=== PATIENT | female | born 1965 | race Caucasian/White ===

== ENCOUNTER 2020-08-31 16:48 | Outpatient (CLI) | payer OTHER, SELFPAY ==
--- NOTE | ~2020-08-31 | MM_ITS ---
EXAMINATION: MM screening luisana BI w ciarra HISTORY: Screening mammogram TECHNIQUE: Craniocaudal and mediolateral oblique 3-D tomosynthesis images were obtained and synthetic 2-D images were generated. CAD analysis was submitted and interpreted. COMPARISON: 08/06/2019, 08/01/2018, 07/24/2017 bilateral digital screening mammogram examinations BREAST PARENCHYMAL COMPOSITION: There are scattered areas of fibroglandular density. FINDINGS: There is no evidence of suspicious mass, calcification, or architectural distortion to sugg est malignancy in either breast. There has been no suspicious interval change. IMPRESSION: 1. No mammographic evidence of malignancy. 2. Recommend routine screening mammography in one year. BI-RADS Category 1: Negative Reviewed, dictated and finalized at location A.
== END 2020-08-31 16:49 | disposition home or self-care (01) ==
LOC: ANHIMG 16:53
DX: Z12.31 Encounter for screening mammogram for malignant neoplasm of breast (principal)
CPT/HCPCS: 77063; 77067

== ENCOUNTER 2021-09-20 16:12 | Outpatient (CLI) | payer OTHER, SELFPAY ==
--- NOTE | ~2021-09-20 | MM_ITS ---
EXAMINATION: MM screening luisana BI w ciarra HISTORY: Screening mammogram TECHNIQUE: Craniocaudal and mediolateral oblique 3-D tomosynthesis images were obtained and synthetic 2-D images were generated. CAD analysis was submitted and interpreted. COMPARISON: 08/31/2020, 08/06/2019, 08/01/2018 bilateral screening mammogram examinations BREAST PARENCHYMAL COMPOSITION: There are scattered areas of fibroglandular density. FINDINGS: There is no evidence of suspicious mass, calcification, or architectural distortion to sugg est malignancy in either breast. There has been no suspicious interval change. IMPRESSION: 1. No mammographic evidence of malignancy. 2. Recommend routine screening mammography in one year. BI-RADS Category 1: Negative Reviewed, dictated and finalized at location A. PROGRAMMER
== END 2021-09-20 16:13 | disposition home or self-care (01) ==
LOC: ANHIMG 16:13
DX: Z12.31 Encounter for screening mammogram for malignant neoplasm of breast (principal)
CPT/HCPCS: 77063; 77067

== ENCOUNTER 2021-11-15 16:37 | Outpatient (CLI) | payer OTHER, SELFPAY ==
--- NOTE | ~2021-11-15 | DEXA_ITS ---
Bone Density Report Name: JAKE HARPER Age: 56 Sex: Female Ethnicity: White Date of : 1965 Indication: postmenopausal; Referring Provider: UNKNOWN, UNKNOWN Study: Bone densitometry was performed. Exam Date: November 15, 2021 Accession number: [id number] Bone Density: Region BMD T-score Z-score Classification AP Spine (L1-L4) 1.160 1.0 2.4 Normal Femoral Neck (Left) 0.950 0.9 2.1 Normal Total Hip (Left) 1.073 1.1 2.0 Normal Total Hip Bilateral Avg 1.089 1.2 2.1 Normal Femoral Neck (Right) 0.807 -0.4 0.8 Normal Total Hip (Right) 1.103 1.3 2.2 Normal World Health Organization criteria for BMD impression classify patients as: Normal (T-score at or above -1.0), Osteopenia (T-score between -1.0 and -2.5), or Osteoporosis (T-score at or below -2.5). 10-year Fracture Risk: FRAX not reported because: All T-scores for Spine Total, Hip Total, Femoral Neck at or above -1.0 Clinical Information Provided by Patient: Patient maximum height was 67 Menopause Age: 48 No regular weight bearing exercise Drinks caffeinated beverages Onset of menses at age 10 Number of children 3 Impression: The patient has normal bone mass. Discussion: BONE DENSITY IS ABOVE THE MINIMUM DESIRABLE LEVEL AT ALL SKELETAL SITES TESTED. This patient?s bone mineral density is above the minimum desirable level (T-score -1.0 or better) at all sites measured. The patient should follow a healthful lifestyle (good nutrition with adequate calcium and vitamin D, and appropriate weight-bearing exercise). Follow-Up: Consider repeating this study in 5 years or sooner if there is some new clinical indication. Reported by: [facility] on 11/15/2021 4:55:00 PM. Reviewed, dictated and finalized at location AErick MORRISON
== END 2021-11-15 16:38 | disposition home or self-care (01) ==
LOC: ANHIMG 16:38
DX: Z78.0 Asymptomatic menopausal state (principal)
CPT/HCPCS: 77080

== ENCOUNTER 2022-11-11 09:57 | Outpatient (CLI) | payer OTHER, SELFPAY ==
--- NOTE | ~2022-11-11 | MM_ITS ---
EXAMINATION: MM screening luisana BI w ciarra HISTORY: Screening mammogram TECHNIQUE: Craniocaudal and mediolateral oblique 3-D tomosynthesis images were obtained and synthetic 2-D images were generated. CAD analysis was submitted and interpreted. COMPARISON: 09/20/2021, 08/31/2020, 08/06/2019 bilateral screening mammogram examinations BREAST PARENCHYMAL COMPOSITION: There are scattered areas of fibroglandular density. FINDINGS: There is no evidence of suspicious mass, calcification, or architectural distortion to sugg est malignancy in either breast. There has been no suspicious interval change. IMPRESSION: 1. No mammographic evidence of malignancy. 2. Recommend routine screening mammography in one year. BI-RADS Category 1: Negative Reviewed, dictated and finalized at location A. SH HISTORY PROFESSOR
== END 2022-11-11 09:58 | disposition home or self-care (01) ==
PROVIDERS: Visit Provider Obstetrics & Gynecology
DX: Z12.31 Encounter for screening mammogram for malignant neoplasm of breast (principal)
CPT/HCPCS: 77063; 77067

== ENCOUNTER 2023-12-18 13:18 | Outpatient (CLI) | payer OTHER, SELFPAY ==
--- NOTE | ~2023-12-18 | MM_ITS ---
EXAMINATION: MM screening luisana BI w ciarra HISTORY: Screening mammogram TECHNIQUE: Craniocaudal and mediolateral oblique 3-D tomosynthesis images were obtained and synthetic 2-D images were generated. CAD analysis was submitted and interpreted. COMPARISON: 11/11/2022, 09/30/2021, 08/31/2020 and lateral screening mammogram examinations BREAST PARENCHYMAL COMPOSITION: There are scattered areas of fibroglandular density. FINDINGS: There is no evidence of suspicious mass, calcification, or architectural distortion to sugg est malignancy in either breast. There has been no suspicious interval change. IMPRESSION: 1. No mammographic evidence of malignancy. 2. Recommend routine screening mammography in one year. BI-RADS Category 1: Negative Reviewed, dictated and finalized at location A. ONAL ACCOUNT MANAGER
== END 2023-12-18 13:19 | disposition home or self-care (01) ==
PROVIDERS: Visit Provider Obstetrics & Gynecology
DX: Z12.31 Encounter for screening mammogram for malignant neoplasm of breast (principal)
CPT/HCPCS: 77063; 77067

== ENCOUNTER 2024-12-23 14:19 | Outpatient (CLI) | payer OTHER, SELFPAY ==
--- NOTE | ~2024-12-23 | MM_ITS ---
EXAMINATION: MM screening luisana BI w ciarra HISTORY: Screening TECHNIQUE: Craniocaudal and mediolateral oblique 3-D tomosynthesis images were obtained and synthetic 2-D images were generated. CAD analysis was submitted and interpreted. COMPARISON: Comparison to multiple prior studies sequentially, with oldest reviewed study dated 08/01. BREAST PARENCHYMAL COMPOSITION: Not Dense: The breasts are almost entirely fatty. FINDINGS: There is no evidence of suspicious mass, calcification, or architectural distortion to sugg est malignancy in either breast. There has been no suspicious interval change. IMPRESSION: 1. No mammographic evidence of malignancy. 2. Recommend routine screening mammography in one year. BI-RADS Category 1: Negative Reviewed, dictated and finalized at location B. TIME STAFF INTERPRETER
--- OUTSIDE RECORDS SUMMARY | 2024-12-23 15:08 | XMS_ITS | Clinical Summary ---
Author Organization [facility] Address [address] [place] [address] Phone Care Team Providers Care Rig Superintendent Name Role Phone Provider, None Primary Care Provider Unavailabl e Social History Tobacco Use Types Packs/Day Years Used Date Smoking Tobacco: Never Assessed Comments No Sex and Gender Information Value Date Recorded Sex Assigned at Not on file Legal Sex Female 12:42 AM CDT Gender Identity Not on file Sexual Orientation Not on file Plan of Treatment Health Maintenance Due Date Last Done Comments Hepatitis C Virus (HCV) Screening 1965 TdaP Immunization 1965 Pap Smear 01/28/1984 Cervical Cancer Screening (CCS) 1993 HPV/Cotest 1993 Colonoscopy 01/28/2008 Colorectal Cancer Screening 01/28/2008 Cologuard 2013 Immunochemical Fecal Occult Blood 2013 Pneumococcal Immunization (5 0+ years) (1 of 1 - PCV) 2013 Zoster Immunization (1 of 2) 2013 Mammogram 07/08/2018 07/08/2016 Influenza Immunization (#1) 2024 SARS-COV-2 Immunization ( - 2023-25 season) 2024 Respiratory Syncytial Virus (RSV) Immunization (Adult) (1 - 1-dose 75+ series) 2038 Hepatitis B Immunization Aged Out No longer eligible based on patient's age to complete this topic Meningococcal Immunization (ACWY) Aged Out No longer eligible based on patient's age to complete this topic Pneumococcal Immunization Combined Aged Out No longer eligible based on patient's age to complete this topic Rotavirus Immunization Aged Out No lo nger eligible based on patient's age to complete this topic Procedures Procedure Name Priority Date/Time Associated Diagnosis Comments [facility] SCREENING BILATERAL DIGITAL W CAD Routine 07/08/2016 9:51 AM CDT Encounter for screening mammogram for malignant neoplasm of breast from Last 3 Months or Most Recently Relevant to Health Maintenance Results * ANGELA SCREENING BILATERAL DIGITAL W CAD (07/08/2016 9:51 AM CDT) Anatomical Region Laterality Modality breast Bilateral Mammography 07/08/2016 9:39 AM CDT Narrative 07/11/2016 7:24 AM CDT - ANGELA SCREENING BILATERAL DIGITAL W CAD BILATERAL DIGITAL SCREENING MAMMOGRAM WITH CAD WITH MEDIOLATERAL OBLIQUE CRANIOCAUDAL: 07/08/2016 The study was acquired using digital technology and interpreted from soft copy. Current study was also evaluated with ICAD version 7.2. CLINICAL: Routine screening. Patient has no complaints. No personal history of cancer. No family history of breast cancer. COMPARISONS: Comparison is made to exams dated: 06/14/2015, 06/09/2014, 05/21/2013, and 04/29/2012 [facility]. BREAST TISSUE:There are scattered fibroglandular densities in both breasts. FINDINGS: There are mole markers on the left breast. No significant masses, calcifications, or other findings are seen in either breast. There has been no significant interval change. IMPRESSION: BI-RAD 1 NEGATIVE There is no mammographic evidence of malignancy. A 1 year screening mammogram is recommended. The patient has been or will be contacted. The patient will be entered into a reminder system with a target due date of 1 year for her next screening exam. Electronically signed by: Tessie pickering/manoj:07/10/2016 11:13:15 Set Staff Fitter: Dorcas Winters(Lars), [facility] letter sent: Normal Exam Reading location: [facility] BI-RADS: 1 Negative Procedure Note Tessie Ellison MD - 07/11/2016 - [facility] SCREENING BILATERAL DIGITAL W CAD BILATERAL DIGITAL SCREENING MAMMOGRAM WITH CAD WITH MEDIOLATERAL OBLIQUE CRANIOCAUDAL: 07/08/2016 The study was acquired using digital technology and interpreted from soft copy. Current study was also evaluated with ICAD version 7.2. CLINICAL: Routine screening. Patient has no complaints. No personal history of cancer. No family history of breast cancer. COMPARISONS: Comparison is made to exams dated: 06/14/2015, 06/09/2014, 05/21/2013, and 04/29/2012 [facility]. BREAST TISSUE:There are scattered fibroglandular densities in both breasts. FINDINGS: There are mole markers on the left breast. No significant masses, calcifications, or other findings are seen in either breast. There has been no significant interval change. IMPRESSION: BI-RAD 1 NEGATIVE There is no mammographic evidence of malignancy. A 1 year screening mammogram is recommended. The patient has been or will be contacted. The patient will be entered into a reminder system with a target due date of 1 year for her next screening exam. Electronically signed by: Tessie Ellison M.D. pw/manoj:07/10/2016 11:13:15 Set Staff Fitter: Drocas Winters(Lars), [facility] letter sent: Normal Exam Reading location: [facility] BI-RADS: 1 Negative Krish Newby MD IMG MAMMO ORDERABLES Final Res ult from Last 3 Months or Most Recently Relevant to Health Maintenance Care Teams Rig Superintendent Relationship Specialty Start Date End Date Provider, None [place] PCP - General 04/27/21
--- OUTSIDE RECORDS SUMMARY | 2024-12-23 15:08 | XMS_ITS | Referral Summary ---
Author Organization [facility] Virtual Care Address [address] [place] [id number] Phone Care Team Providers Care Trimmer Loader Name Role Phone Suzy Fortune NP Primary Care Provider [phone] Encounters Date Type Department Care Team Description 12/22/2024 Telephone [facility] Medical Group Primary Care at [address] [address] Rosana Crabtree from Last 3 Months Allergies No known active allergies Medications levothyroxine (SYNTHROID) 100 mcg tablet Take 1 tablet (100 mcg total) by mouth daily 90 tablet 4 4 Active lovastatin (MEVACOR) 10 mg tablet TAKE 1 TABLET BY MOUTH EVERY DAY AT NIGHT 90 tablet 3 5 Active lisinopril-hyd roCHLOROthiazi de (ZESTORETIC) 10-12.5 mg per tablet TAKE 1 TABLET BY MOUTH EVERY DAY 90 tablet 3 5 Active lisinopril-hyd roCHLOROthiazi de (ZESTORETIC) 10-12.5 mg per tablet Take 1 tablet by mouth daily 90 tablet 3 4 12/05/19 25 Discontinued lovastatin (MEVACOR) 10 mg tablet Take 1 tablet (10 mg total) by mouth nightly 90 tablet 3 4 12/05/19 25 Discontinued Active Problems Problem Noted Date Diagnosed Date Encounter for annual physical exam 06/26/2024 Assessment & Plan (06/26/2024 10:41 AM CDT): Discussed routine health care and maintenance. Get annual flu shot this fall. Labs ordered. Patient continues to refuse to get a colonoscopy or Cologuard. She has an appointment scheduled for next December for her mammogram and would like an order for it today. Encounter for other screenin g for malignant neoplasm of breast 06/26/2024 Assessment & Plan (06/26/2024 10:41 AM CDT): Mammogram ordered Need for hepatitis B screening test 06/26/2024 Hypertension, essential 12/27/2023 Assessment & Plan (06/26/2024 10:39 AM CDT): BP stable at 136/86. Patient reports white coat hypertension. It typically is not over 130/80 at home. Continue to limit salt in diet and take lisinopril HCT 10/12.5 mg daily. Labs ordered Assessment & Plan (12/27/2023 10:57 AM KRAFT DIGESTER OPERATOR): Has a history of white coat syndrome BP checks outside of office always under 140/90 per patient BP in office today is 148/88 Continue lisinopril HCT 10/12.5 mg daily Continue to limit salt in diet Encouraged to increase exercise Mixed hyperlipidemia 12/27/2023 Assessment & Plan (06/26/2024 10:39 AM CDT): Continue to limit fats in diet and take lovastatin 10 mg at HS. Lipid panel ordered Assessment & Plan (12/27/2023 10:57 AM KRAFT DIGESTER OPERATOR): Continue on lovastatin 10 mg at HS and to limit fats in diet Labs ordered today Acquired hypothyroidism 12/27/2023 Assessment & Plan (06/26/2024 10:39 AM CDT): Continue levothyroxine 75 mcg daily. TSH ordered Assessment & Plan (12/27/2023 10:56 AM KRAFT DIGESTER OPERATOR): Continue levothyroxine 50 mcg daily Refills sent to pharmacy Labs ordered today Screening for colon cancer 12/27/2023 Assessment & Plan (12/27/2023 10:59 AM KRAFT DIGESTER OPERATOR): Refuses to get a colonoscopy. Is willing to do a Cologuard screen, ordered today Colonoscopy refused 12/27/2023 Assessment & Plan (12/27/2023 10:59 AM KRAFT DIGESTER OPERATOR): Is agreeable to do Cologuard screen Class 2 obesity without seri ous comorbidity with body mass index (BMI) of 36.0 to 36.9 in adult 12/27/2023 Assessment & Plan (06/26/2024 10:41 AM CDT): BMI 36.17. She was counseled on the importance of obtaining a healthy weight and the risks of obesity. Weight loss recommended. Assessment & Plan (12/27/2023 11:01 AM KRAFT DIGESTER OPERATOR): BMI 35.69 She was counseled on the importance of maintaining a healthy weight and the risks of obesity. Weight loss recommended. Resolved Problems Problem Noted Date Diagnosed Date Resolved Date Severe obesity 06/26/2024 06/26/2024 Need for hepatitis C screening test 12/27/2023 06/26/2024 Immunizations Name Administration Dates Next Due Influenza, Quadrivalent, Spl it, Preservative Free, Intramuscular 08/31/2023,08/25/2022 Influenza, Trivalent, IM (MDV) 08/26/2021 Influenza, Unspecified 08/20/2023(Deferred: Kerri ent Refused) Social History Tobacco Use Types Packs/Day Years Used Date Smoking Tobacco: Never Smokeless Tobacco: Never Tobacco Cessation:Counseling Given: Not Answered AUDIT-C Answer Date Recorded Q1: How often do you have a drink containing alcohol? Never 12/27/2023 Q2: How many drinks containi ng alcohol do you have on a typical day when you are drinking? Patient does not drink Q3: How often do you have si x or more drinks on one occasion? Never 12/27/2023 PHQ-2 Answer Date Recorded PHQ-2 Total Score (If total score is 3 or more points, staff should administer the PHQ-9) 0 12/27/2023 Personal Safety Answer Date Recorded Getting School Help Needed Not on file 01/16 /2024 Comments Unknown Sex and Gender Information Value Date Recorded Sex Assigned at Not on file Legal Sex Female 8:08 AM KRAFT DIGESTER OPERATOR Gender Identity Not on file Sexual Orientation Not on file Last Filed Vital Signs Vital Sign Reading Time Taken Comments Blood Pressure 136/86 06/26/2024 7:56 AM CDT Pulse 75 06/26/2024 7:56 AM CDT Temperature 36.9 C (98.4 F) 06/26/2024 7:56 AM CDT Respiratory Rate - - Oxygen Saturation 96% 06/26/2024 7:56 AM CDT Inhaled Oxygen Concentration - - Weight 104.8 kg (231 lb) 06/26/2024 7:56 AM CDT Height 170.2 cm (5' 7.01 ) 06/26/2024 7:56 AM CD T Body Mass Index 36.17 06/26/2024 7:56 AM CDT Plan of Treatment Not on file Procedures Procedure Name Priority Date/Time Associated Diagnosis Comments HEPATITIS C ANTIBODY Routine 12/27/2023 8:48 AM KRAFT DIGESTER OPERATOR Need for hepatitis C screening test SCREENING MAMMOGRAM 2D BILATERAL Schedule Routine, Read Routine (OP Routine) 12/18/2023 9:08 AM KRAFT DIGESTER OPERATOR from Last 3 Months or Most Recently Relevant to Health Maintenance Results * Hepatitis C antibody Blood (12/27/2023 8:48 AM KRAFT DIGESTER OPERATOR) Hep C Ab Nonreactive Nonreactive LYNN REINOSO Comment: Interpretive Data Nonreactive: Antibodies to HCV not detected. Does NOT exclude the possibility of recent exposure to HCV. Equivocal: Equivocal for HCV antibodies. Supplemental molecular testing will be automatically performed to determine infection status in accordance with current CDC screening recommendations. Reactive: Positive for HCV antibodies. This may represent current or past HCV infection. Supplemental molecular testing will be automatically performed to determine current infection status in accordance with current CDC screening recommendations. Interpretive data was last revised on 2020. Blood 12/27/2023 8:48 AM KRAFT DIGESTER OPERATOR 12/27/2023 2:28 PM KRAFT DIGESTER OPERATOR us Suzy Fortune NP LAB MICROBIOLOGY - GENERAL OR DERABLES Final Result LYNN REINOSO [id number] Department [place] [address] * Screening Mammogram 2D Bilateral (12/18/2023 9:08 AM KRAFT DIGESTER OPERATOR) Anatomical Region Laterality Modality Breast Bilateral Mammography us Historical Provider MD ONEIL MAMMO PROCEDURES Francine l Result from Last 3 Months or Most Recently Relevant to Health Maintenance Insurance A[employer] OPEN ACCESS Care Teams Trimmer Loader Relationship Specialty Start Date End Date Suzy Fortune NP [address] [facility] [address] [place] [address] PCP - General Senior Software Systems Engineer 12/27/23
--- OUTSIDE RECORDS SUMMARY | 2024-12-23 15:08 | XMS_ITS | Encounter Summary ---
Author Organization [facility] Healthcare Address [address] [place] [address] Care Team Providers Care Dumper [employer] Name Role Phone Suzy Fortune NP Primary Care Provider [phone] Encounter Details Date Type Department Care Team (Late st Contact Info) Description 12/22/[address] [facility] Medical Group Primary Care at [address] [phone] Rosana Crabtree Social History Tobacco Use Types Packs/Day Years Used Date Smoking Tobacco: Never Smokeless Tobacco: Never AUDIT-C Answer Date Recorded Q1: How often [...] Getting School Help Needed Not on file 11/27 Comments Unknown Sex and Gender Information Value Date Recorded Sex Assigned at Not on file Legal Sex Female 8:08 AM NETWORKING ENGINEER Gender Identity Not on file Sexual Orientation Not on file documented as of this encounter Miscellaneous Notes * Telephone Encounter - Rosana Crabtree - 12/22/2024 2:42 PM CST I left a message with patient letting her know that Suzy will be out of the office on 12/30 requested that she gives us a call at the mainline or reschedules on [place] [employer]. ORKING ENGINEER documented in this encounter Plan of Treatment Not on file documented as of this encounter Visit Diagnoses Not on filedocumented in this encounter Care Teams Dumper [employer] Relationship Specialty Start Date End Date Suzy Fortune NP [address] [address] PCP - General Psychologist Chief 12/27/23 documented as of this encounter
--- OUTSIDE RECORDS SUMMARY | 2024-12-23 15:08 | XMS_ITS | Clinical Summary ---
Author Organization [facility] Virtual Care Address [address] [place] [phone] Phone Care Team Providers Care Editing Internship Name Role Phone Suzy Fortune NP Primary Care Provider [phone] Allergies No known active allergies Medications levothyroxine [...] ordered Assessment & Plan (12/27/2023 10:57 AM DOCUMENT CONTROL MANAGER): Has a history of white coat syndrome [...] ordered Assessment & Plan (12/27/2023 10:57 AM DOCUMENT CONTROL MANAGER): Continue on lovastatin 10 mg at HS and to limit fats in diet Labs ordered today Acquired hypothyroidism 12/27/2023 Assessment & Plan (06/26/2024 10:39 AM CDT): Continue levothyroxine 75 mcg daily. TSH ordered Assessment & Plan (12/27/2023 10:56 AM DOCUMENT CONTROL MANAGER): Continue levothyroxine 50 mcg daily Refills sent to pharmacy Labs ordered today Screening for colon cancer 12/27/2023 Assessment & Plan (12/27/2023 10:59 AM DOCUMENT CONTROL MANAGER): Refuses to get a colonoscopy. Is willing to do a Cologuard screen, ordered today Colonoscopy refused 12/27/2023 Assessment & Plan (12/27/2023 10:59 AM DOCUMENT CONTROL MANAGER): Is agreeable to do Cologuard screen Class 2 obesity without seri ous comorbidity with body mass index (BMI) of 36.0 to 36.9 in adult 12/27/2023 Assessment & Plan (06/26/2024 10:41 AM CDT): BMI 36.17. She was counseled on the importance of obtaining a healthy weight and the risks of obesity. Weight loss recommended. Assessment & Plan (12/27/2023 11:01 AM DOCUMENT CONTROL MANAGER): BMI 35.69 She was counseled on the importance of maintaining a healthy weight and the risks of obesity. Weight loss recommended. Resolved Problems Problem Noted Date Diagnosed Date Resolved Date Severe obesity 06/26/2024 06/26/2024 Need for hepatitis C screening test 12/27/2023 06/26/2024 Encounters Date Type Department Care Team Description 12/22/2024 Telephone [facility] Medical Group Primary Care at [address] [phone] Rosana Crabtree from Last 3 Months Immunizations Name Administration Dates Next Due Influenza, [...] on file Legal Sex Female 8:08 AM DOCUMENT CONTROL MANAGER Gender Identity Not on file Sexual Orientation Not on file Obstetrics History Last Filed Vital Signs Vital Sign Reading [...] 06/26/2024 7:56 AM CDT Plan of Treatment Health Maintenance Due Date Last Done Comments Cervical Cancer Screening 1965 Colon Cancer Screening-Colonoscopy 1965 DTaP/Tdap/Td Vaccine (1 - Tdap) 1974 Covid-19 Vaccine (4 - season) 2024 10/26/2021, 12/10/2020, 11/09/2020 Breast Cancer Screening-Mammogram 12/18/2024 12/18/2023, 07/08/2016, 07/08/2016 Depression Screening 12/27/2024 12/27/2023 Zoster Vaccine (1 of 2) 06/23/2025 Post poned from 2013 (Patient declined, but will receive in the future) Regular Well Visit/Exam 18-64 06/26/2025 06/26/2024 Hepatitis C Screening Completed 12/27/2023 Hepatitis B Screening Completed 06/26/2024 Influenza Vaccine Completed 09/10/2024, , 08/25/2022, Additional history exists Pneumococcal vaccine <65 Aged Out No longer eligible based on patient's age to complete this topic Procedures Procedure Name Priority Date/Time Associated Diagnosis Comments HEPATITIS C ANTIBODY Routine 12/27/2023 8:48 AM DOCUMENT CONTROL MANAGER Need for hepatitis C screening test SCREENING MAMMOGRAM 2D BILATERAL Schedule Routine, Read Routine (OP Routine) 12/18/2023 9:08 AM DOCUMENT CONTROL MANAGER from Last 3 Months or Most Recently Relevant to Health Maintenance Results * Hepatitis C antibody Blood (12/27/2023 8:48 AM DOCUMENT CONTROL MANAGER) Hep C Ab Nonreactive Nonreactive LYNN REINOSO [...] revised on 2020. Blood 12/27/2023 8:48 AM DOCUMENT CONTROL MANAGER 12/27/2023 2:28 PM DOCUMENT CONTROL MANAGER Suzy Fortune NP LAB MICROBIOLOGY - GENERAL OR DERABLES Final Result Performing Organization Address City/State/[facility] Co de Phone Number LYNN [phone] [address] Department [place] [address] * Screening Mammogram 2D Bilateral (12/18/2023 9:08 AM DOCUMENT CONTROL MANAGER) Anatomical Region Laterality Modality Breast Bilateral Mammography Historical Provider MD ONEIL MAMMO PROCEDURES Francine l Result from Last 3 Months or Most Recently Relevant to Health Maintenance Insurance AETNA [place] OPEN ACCESS Care Teams Editing Internship Relationship Specialty Start Date End Date Suzy Fortune NP [address] [facility] [address] [place] [address] PCP - General File System Installer 12/27/23
== END 2024-12-23 14:20 | disposition home or self-care (01) ==
PROVIDERS: PCP Nurse Practitioner; Visit Provider Obstetrics & Gynecology
DX: Z12.31 Encounter for screening mammogram for malignant neoplasm of breast (principal)
CPT/HCPCS: 77063; 77067